=== PATIENT | male | born 2005 ===

== ENCOUNTER → 2025-02-20 12:19 | Outpatient (REF) | payer MEDICAID, SELFPAY ==
[2025-02-20 13:47] LABS: Absolute Lymphocyte Count 1.98 X10^3/uL (0.83-4.51); Basophil# 0.07 X10^3/uL; Eosinophil# 0.15 X10^3/uL; Eosinophils% 2.2 % (0-5); Hematocrit 48.9 % (40-54); Hemoglobin 16.2 g/dL (13.0-16.5); Lymphocyte # 1.98 X10^3/ul (0.83-4.51); Lymphocyte % 29.2 % (19-41); Mean Corp Hgb Conc 33.1 g/dL (32-36); Mean Corpuscular Hgb 29.5 pg (27.0-32.0); Mean Corpuscular Volume 89.1 fL (80-94); Mean Platelet Vol. 11.5 fl (6.2-12.0); Monocyte# 0.54 X10^3/uL; NRBC Flagged by Analyzer 0 % (0-5); Neutrophil # 4.02 X10^3/uL (2.7-7.7); Neutrophil % 59.3 % (47-70); Platelet Count 314 K/mm3 (150-450); RBC Distribution Width CV 12.4 % (11.6-14.6); RBC Distribution Width SD 40.6 fl (35.1-43.9); Red Blood Count 5.49 M/mm3 (4.6-6.2); White Blood Count 6.8 K/mm3 (4.4-11.0)
[2025-02-20 16:59] LABS: Vitamin B12 363 pg/mL (180-914); Vitamin D,25 Hydroxy 24.3 ng/mL (30-100)
[2025-02-20 19:30] LABS: ALB/GLOB Ratio 1.9 RATIO (0.9-2.4); AST(SGOT) 27 U/L (<=37); Alanine Aminotransfer ALT/SGPT 18 U/L (<=46); Albumin, Serum 5.3 g/dL (3.5-5.0); Alkaline Phosphatase 103 U/L (40-129); Anion Gap 18 (5-15); BUN 14 mg/dL (4-19); BUN/Creat Ratio 17.7 RATIO (10-20); Calcium,Total 10.1 mg/dL (7.6-11.0); Carbon Dioxide 23.9 mmol/L (21.0-32.0); Chloride 96 mmol/L (98-108); Creatinine, Serum 0.79 mg/dL (0.70-1.20); EST Glomerular Filtration Rate 131 (>60); Globulin 2.8 g/dL (2.2-4.2); Glucose 91 mg/dL (70-99); Protein, Total 8.1 g/dL (5.9-8.4); Sodium Level 138 mmol/L (133-145); Total Bilirubin 0.44 mg/dL (0.00-1.30)
[2025-02-23 17:08] LABS: G6PD Quant Test 244 (156-397); Red Blood Cell Count Test/G6PD 5.62 x10E6/uL (4.14-5.80)
== END ==
LOC: LABSPEC 12:19
PROVIDERS: Referring Provider Nurse Practitioner Family; Visit Provider Nurse Practitioner Family
DX: R53.1 Weakness (principal); R63.4 Abnormal weight loss; R53.82 Chronic fatigue, unspecified; R50.9 Fever, unspecified; H93.13 Tinnitus, bilateral; R59.0 Localized enlarged lymph nodes; R05.1 Acute cough; R06.00 Dyspnea, unspecified; R05.9 Cough, unspecified; R07.9 Chest pain, unspecified; R00.2 Palpitations; G89.29 Other chronic pain; R11.0 Nausea; K59.00 Constipation, unspecified; R19.7 Diarrhea, unspecified; R26.81 Unsteadiness on feet; M25.50 Pain in unspecified joint; R25.3 Fasciculation; R26.9 Unspecified abnormalities of gait and mobility
CPT/HCPCS: 80053; 82306; 82607; 82955; 84439; 84443; 85025